=== PATIENT | female | born 1960 | race Caucasian/White ===

== ENCOUNTER 2016-12-19 16:14 | Emergency (ER) | payer MEDICARE, OTHER ==
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
--- NOTE | 2016-12-19 18:11 | XR ---
EXAMINATION TYPE: XR tibia fibula LT DATE OF EXAM: 12/19/2016 5:56 PM COMPARISON: NONE HISTORY: Pain TECHNIQUE: 2 views FINDINGS: There is a nondisplaced fracture of the distal fibula. Knee joint appears intact. Tibia is intact. IMPRESSION: Distal fibula fracture.
--- NOTE | 2016-12-19 18:13 | XR ---
EXAMINATION TYPE: XR foot complete LT DATE OF EXAM: 12/19/2016 5:56 PM COMPARISON: NONE HISTORY: Pain TECHNIQUE: 3 views FINDINGS: I see no fracture nor dislocation. Joint spaces are normal. IMPRESSION: Negative left foot exam.
--- NOTE | 2016-12-19 18:13 | XR ---
EXAMINATION TYPE: XR ankle complete LT DATE OF EXAM: 12/19/2016 5:56 PM COMPARISON: NONE HISTORY: Pain TECHNIQUE: 3 views FINDINGS: There is nondisplaced oblique fracture of the distal fibula. There is lateral soft tissue s welling. There is no dislocation. IMPRESSION: Acute fracture distal fibula.
--- NOTE | 2016-12-19 18:14 | XR ---
EXAMINATION TYPE: XR shoulder complete LT DATE OF EXAM: 12/19/2016 5:56 PM COMPARISON: NONE HISTORY: Shoulder pain TECHNIQUE: 3 views FINDINGS: I see no fracture nor dislocation. Joint spaces are normal. There are no pathologic calcifi cations. IMPRESSION: Negative left shoulder exam.
[2016-12-19] MEDS ORDERED: HYDROcodone/APAP 10-325MG 1 EACH TAB PO ONE (18:23)
[2016-12-19] MEDS ORDERED: ACET/COD 300 MG/30 MG STARTER PACK 6 TAB BTL PO STA (19:01)
[2016-12-19 19:16] VITALS: BP 130/78; PULSE 87; RESP 18; TEMP 98.2
== END 2016-12-19 19:15 | disposition home or self-care (01) ==
LOC: EC 16:14
DX: S82.832A Other fracture of upper and lower end of left fibula, initial encounter for closed fracture (principal); E78.5 Hyperlipidemia, unspecified; I10 Essential (primary) hypertension; F32.9 Major depressive disorder, single episode, unspecified; F41.9 Anxiety disorder, unspecified; F17.200 Nicotine dependence, unspecified, uncomplicated; Z79.82 Long term (current) use of aspirin; Z79.899 Other long term (current) drug therapy; V00.831A Fall from motorized mobility scooter, initial encounter; Y92.410 Unspecified street and highway as the place of occurrence of the external cause
CPT/HCPCS: 99284

== ENCOUNTER → 2017-04-19 | Outpatient (CLI) | payer MEDICARE, OTHER ==
--- NOTE | 2017-04-21 08:21 | MM ---
Reason for exam: screening (asymptomatic). Last mammogram was performed 2 years and 11 months ago. History: Patient is postmenopausal. Excisional biopsy of the left breast. Benign excisional biopsy of the right breast. Physical Findings: A clinical breast exam by your physician is recommended on an annual basis and results should be correlated with mammographic findings. MG 3D Screening Mammo W/Cad Bilateral CC and MLO view(s) were taken. Prior study comparison: May 14, 2014, mammogram. January 30, 2013, mammogram. The breast tissue is heterogeneously dense. This may lower the sensitivity of mammography. Stable mass upper inner left breast and upperouter quadrant right mass with biopsy marker. No suspicious abnormality. No significant changes when compared with prior studies. ASSESSMENT: Benign, BI-RAD 2 RECOMMENDATION: Routine screening mammogram of both breasts in 1 year.
== END | disposition home or self-care (01) ==
LOC: RADMAMWWP 13:57
PROVIDERS: ATTEND Internal Medicine
DX: Z12.31 Encounter for screening mammogram for malignant neoplasm of breast (principal)
CPT/HCPCS: 77063; G0202

== ENCOUNTER → 2018-06-23 | Outpatient (CLI) | payer MEDICARE, OTHER ==
--- NOTE | 2018-06-23 13:16 | XR ---
EXAMINATION TYPE: XR chest 2V DATE OF EXAM: 06/23/2018 COMPARISON: 05/23/2016 TECHNIQUE: PA and lateral views submitted. HISTORY: Cough FINDINGS: The lungs are clear and there is no pneumothorax, pleural effusion, or focal pneumonia. Hyperinflat ion suggests COPD. IMPRESSION: 1. No acute process.
== END ==
LOC: RADXRMAIN 12:52
PROVIDERS: ATTEND Internal Medicine
DX: R04.2 Hemoptysis (principal)
CPT/HCPCS: 71046

== ENCOUNTER → 2020-11-12 | Outpatient (CLI) | payer MEDICARE, OTHER ==
--- NOTE | 2020-11-13 13:32 | MM ---
Reason for exam: screening (asymptomatic). Last mammogram was performed 3 years and 7 months ago. History: Patient is postmenopausal. Excisional biopsy of the left breast. Benign excisional biopsy of the right breast. Physical Findings: A clinical breast exam by your physician is recommended on an annual basis and results should be correlated with mammographic findings. MG Screening Mammo w CAD Bilateral CC, MLO, and XCCL view(s) were taken. Prior study comparison: April 19, 2017, bilateral MG 3d screening mammo w/cad. May 14, 2014, mammogram. The breast tissue is heterogeneously dense. This may lower the sensitivity of mammography. Previous mammotome biopsy in the right breast at chronic nodularity. There is chronic nodularity bilaterally. There is no discrete abnormality. ASSESSMENT: Benign, BI-RAD 2 RECOMMENDATION: Routine screening mammogram of both breasts in 1 year.
== END | disposition home or self-care (01) ==
LOC: RADMAMWWP 09:54
PROVIDERS: ATTEND Internal Medicine
DX: Z12.31 Encounter for screening mammogram for malignant neoplasm of breast (principal)
CPT/HCPCS: 77067

== ENCOUNTER → 2022-12-22 | Outpatient (CLI) | payer MEDICARE, OTHER ==
--- NOTE | 2022-12-23 08:37 | XR ---
EXAMINATION TYPE: XR chest 2V DATE OF EXAM: 12/22/2022 COMPARISON: 06/23/2018 TECHNIQUE: PA and lateral views submitted. HISTORY: Chronic cough FINDINGS: The lungs are clear and there is no pneumothorax, pleural effusion, or focal pneumonia. Heart size normal and no overt failure. Osseous structures intact. There is a surgical clip overlying the right breast. Hyperinflation suggests COPD. IMPRESSION: 1. No acute process. Correlate for COPD or asthma.
== END | disposition home or self-care (01) ==
LOC: RADXRMAIN 16:28
PROVIDERS: ATTEND Internal Medicine
DX: R05.9 Cough, unspecified (principal)
CPT/HCPCS: 71046

== ENCOUNTER → 2022-12-29 | Outpatient (CLI) | payer MEDICARE, OTHER ==
--- NOTE | 2022-12-30 08:14 | MM ---
Reason for Exam: Screening (asymptomatic). Last mammogram was performed 2 year(s) and 2 month(s) ago. Patient History: Menarche at age 18. First Full-Term at age 20. Postmenopausal. Benign Excisional Biopsy on the right side. Excisional Biopsy on the Left side. Risk Values: Babs 5 year model risk: 1.5%. NCI Lifetime model risk: 7.0%. Prior Study Comparison: 01/30/2013 Screening Mammogram, Unknown. 05/14/2014 Screening Mammogram, Unknown. 04/19/2017 Bilateral Screening Mammogram, [facility]. 11/12/2020 Bilateral Screening Mammogram, [facility]. Tissue Density: The breast tissue is heterogeneously dense. This may lower the sensitivity of mammography. Findings: Analyzed By CAD. There is no suspicious group of microcalcifications or new suspicious mass in either breast. Previous mammotome biopsy in the right breast at chronic nodularity. Stable chronic nodularity bilaterally. Overall Assessment: Benign, BI-RAD 2 Management: Screening Mammogram of both breasts in 1 year. A clinical breast exam by your physician is recommended on an annual basis and results should be correlated with mammographic findings. Note on Babs scores and lifetime risk: 1. A Babs score greater than 3% is considered moderate risk. If this is the case, consider specialist referral to assess eligibility for a risk reducing agent. If overall lifetime risk for the development of breast cancer is 20% or higher, the patient may qualify for future screening with alternating mammogram and breast MRI. Electronically signed and approved by: Frank Salgado D.O.
== END | disposition home or self-care (01) ==
LOC: RADMAMWWP 16:03
PROVIDERS: ATTEND Internal Medicine
DX: Z12.31 Encounter for screening mammogram for malignant neoplasm of breast (principal); Z78.0 Asymptomatic menopausal state
CPT/HCPCS: 77063; 77067

== ENCOUNTER → 2024-01-02 | Outpatient (CLI) | payer MEDICARE, OTHER ==
--- NOTE | 2024-01-03 16:49 | MM ---
Reason for Exam: Screening (asymptomatic). Last screening mammogram was performed 12 month(s) ago. Patient History: Menarche at age 18. First Full-Term at age 20. Postmenopausal. Benign Excisional Biopsy on the right side. Excisional Biopsy on the Left side. Risk Values: Babs 5 year model risk: 1.5%. NCI Lifetime model risk: 6.8%. Prior Study Comparison: 04/19/2017 Bilateral Screening Mammogram, [facility]. 11/12/2020 Bilateral Screening Mammogram, [facility]. 12/29/2022 Bilateral MG 3D screening mammo w/cad, [facility]. Tissue Density: The breasts are heterogeneously dense, which may obscure small masses. Findings: Analyzed By CAD. The pattern is symmetrical. No significant interval change is evident. Core marker is within the right breast. Chronic nodularity is within the bilateral breasts No suspicious groups of microcalcifications, spiculated or lobular masses, architectural distortion or other secondary signs of malignancy are mammographically apparent. Overall Assessment: Benign, BI-RAD 2 Management: Screening Mammogram of both breasts in 1 year. A negative mammogram report should not preclude additional follow up of suspicious palpable abnormalities. Patient should continue monthly self breast exam. A clinical breast exam by your physician is recommended on an annual basis and results should be correlated with mammographic findings. Note on Babs scores and lifetime risk: 1. A Babs score greater than 3% is considered moderate risk. If this is the case, consider specialist referral to assess eligibility for a risk reducing agent. 2. If overall lifetime risk for the development of breast cancer is 20% or higher, the patient may qualify for future screening with alternating mammogram and breast MRI. Electronically signed and approved by: Ramsey Foreman D.O. Radiologis
--- NOTE | 2024-01-04 17:43 | BD ---
EXAMINATION TYPE: Axial Bone Density DATE OF EXAM: 01/02/2024 CLINICAL HISTORY: 63 years old Female. ICD-10 CODE: N95.1 MARYJO M85.88 OTHER DISORDER Height: 63 Weight: 143 FRAX RISK QUESTIONS: Family History (Parent hip fracture): no History of Fracture in Adulthood: yes, lt ankle Secondary Osteoporosis: no Rheumatoid Arthritis: yes Current Tobacco Use: yes RISK FACTORS HISTORY OF: Surgery to Spine/Hip(right/left)/Wrist (right/left): no MEDICATIONS: Thyroid Medications: yes Which medication: Levothyroxine How Lon+ year Osteoporosis Medications: no EXAM MEASUREMENTS: Bone mineral densitometry was performed using the [employer]. Bone mineral density as measured about the Lumbar spine is: ----- L1-L4(G/cm2): 1.227 T Score Values are as follows: ----- L1: -0.3 ----- L2: 0.4 ----- L3: 1.5 ----- L4: -0.3 ----- L1-L4: 0.4 Z Score Values are as follows: ----- L1: 1.1 ----- L2: 1.7 ----- L3: 2.9 ----- L4: 1.1 ----- L1-L4: 1.8 Bone mineral density baseline Bone mineral density about the R hip (g/cm2): 0.821 Bone mineral density about the L hip (g/cm2): 0.788 T Score values are as follows: -----R Neck: -1.9 -----L Neck: -2.0 -----R Total: -1.5 -----L Total: -1.7 Z Score values are as follows: -----R Neck: -0.5 -----L Neck: -0.6 -----R Total: -0.4 -----L Total: -0.7 Bone mineral density baseline FRAX%s: The graph provided illustrates a 17.8% chance for a major osteoporotic fx and a 4.1% chance f or the hips probability for fx in 10 years time. IMPRESSION: Osteopenia (T Score between -2.5 and -1). There is slightly increased risk of fracture and the patient may be considered for treatment. Re-Screen 2-5 years. NOTE: T-SCORE=SD OF THE YOUNG ADULT MEAN.
== END | disposition home or self-care (01) ==
LOC: RADMAMWWP 13:07
PROVIDERS: ATTEND Internal Medicine
DX: Z12.31 Encounter for screening mammogram for malignant neoplasm of breast (principal); M85.89 Other specified disorders of bone density and structure, multiple sites; N95.1 Menopausal and female climacteric states
CPT/HCPCS: 77067; 77080